=== PATIENT | male | born 1985 | race Caucasian/White ===

== ENCOUNTER 2017-02-19 00:43 | Emergency (ER) | payer OTHER ==
[~2017-02-19 00:43] MED LIST: ANTIVERT PO; BACTRIM DS TABL1 TA1 PO; CLEOCIN HCL300 M1 PO; DARVOCET-N 1001 TAB PO; NO MEDICATIONS; SUBOXONE 8 MG-1 EAC1 SL; VOLTAREN75 MG PO; WELLBUTRIN XL PO
== END 2017-02-19 00:45 | disposition home or self-care (01) ==
LOC: SED 00:43
DX: S63.501A Unspecified sprain of right wrist, initial encounter (principal); S80.01XA Contusion of right knee, initial encounter; F32.9 Major depressive disorder, single episode, unspecified; F17.200 Nicotine dependence, unspecified, uncomplicated; W01.0XXA Fall on same level from slipping, tripping and stumbling without subsequent striking against object, initial encounter; Y92.89 Other specified places as the place of occurrence of the external cause
CPT/HCPCS: 29125; 29530; 99284

== ENCOUNTER 2017-04-23 19:35 | Emergency (ER) | payer SELFPAY ==
--- NOTE | ~2017-04-23 | CT98 ---
[facility] A Service of [facility] & [facility] RADIOLOGY TEXT RESULTS PATIENT: EVELYN MONTGOMERY LOCATION: SED : 83 UNIT #: [id number] AGE: [address]: DARIEN CASTELLANOS PA-C SEX: M ORDER DR: [id number] [address] [address] [id number] E MR#: [id number] Acc #: [id number] NAME: EVELYN MONTGOMERY : 1985 SEX: M STUDY DATE/TIME: 04/23/2017 20:35 UNIT: SED ROOM: STUDY DESCRIPTION: CT Lumbar Spine Wo Cont Attending Physician: Darien Castellanos Pa-C Ordering Physician: Darien Castellanos Pa-C Primary Care Physician: Brain Yeung M.D. MEDICAL IMAGING REPORT This report is preliminary unless electronic signature is present. EXAM CT lumbar spine without contrast. HISTORY Fell at [facility], low back pain, right hip pain x2 weeks. COMPARISON CT lumbar spine, 11/09/08. TECHNIQUE Thin section axial images performed through the lumbar spine without contrast. Multiplanar reconstructed images reviewed at a workstation. This CT exam was performed with one or more of the following radiation dose reduction techniques: automatic exposure control, adjustment of mA and/or kV according to patient size, and iterative reconstruction. No fracture or malalignment. At L2-3, there is a circumferential disc bulge which in combination with facet hypertrophic changes contributes to moderate central canal stenosis and mild bilateral foraminal stenosis. At L3-4, there is a circumferential disc bulge with facet ligamentous hypertrophic changes contributing to bilateral foraminal stenosis. At L4-5, there is a circumferential disc bulge contributing to moderate central canal stenosis and moderate bilateral foraminal stenosis. At L5-S1, there is a moderate sized central disc protrusion which effaces the thecal sac and contributes to moderate central canal stenosis and bilateral foraminal stenosis. Posterior elements and paravertebral soft tissues unremarkable. IMPRESSION 1. No acute lumbar spine abnormality identified. 2. Multilevel degenerative disc disease with multilevel disc bulging L2-3, L3-4, L4-5, L5-S1 with multilevel spinal and foraminal stenosis as detailed above. These findings have all shown progression when STS. [facility] A Service of [facility] & [facility] RADIOLOGY TEXT RESULTS PATIENT: EVELYN MONTGOMERY [place] [facility] [birth year] UNIT #: [id number] AGE: [address]: DARIEN CASTELLANOS PA-C SEX: M ORDER DR: compared to the patient's study of 2008. Dictated by... Ramon Richey M.D. THIS IS AN ELECTRONICALLY VERIFIED REPORT Ramon Richey M.D. at 04/24/2017 2:47 PM OPHELIA/paola TD: 04/23/2017 21:38 JOB #: [id number] MEDICAL IMAGING REPORT Page 1 of 1
--- NOTE | ~2017-04-23 | CR150 ---
[facility] A Service of [facility] & [facility] RADIOLOGY TEXT RESULTS PATIENT: EVELYN MONTGOMERY LOCATION: SED : [birth year] UNIT #: [id number] AGE: [address]: DARIEN CASTELLANOS PA-C SEX: M ORDER DR: [id number] [place] [address] [id number] E MR#: [id number] Acc #: [id number] NAME: EVELYN MONTGOMERY : 1985 SEX: M STUDY DATE/TIME: 04/23/2017 20:41 UNIT: SED ROOM: STUDY DESCRIPTION: CR Hip Min 2 Views Lt Attending Physician: Darien Castellanos Pa-C Ordering Physician: Darien Castellanos Pa-C Primary Care Physician: Brain Yeung M.D. MEDICAL IMAGING REPORT This report is preliminary unless electronic signature is present. EXAM Left hip HISTORY Fell at [facility] 2 weeks ago. Complains of left hip pain, low back pain. FINDINGS AP pelvis and frog lateral view left hip demonstrates no fracture, dislocation, arthritic or inflammatory change. Soft tissues appear normal. IMPRESSION Negative left hip and pelvis. Dictated by... Ramon Richey M.D. THIS IS AN ELECTRONICALLY VERIFIED REPORT Ramon Richey M.D. at 04/24/2017 2:47 PM OPHELIA/rene TD: 04/23/2017 21:28 JOB #: [id number] MEDICAL IMAGING REPORT Page 1 of 1
--- NOTE | ~2017-04-23 | CR63 ---
[facility]. [facility] A Service of [facility] RADIOLOGY TEXT RESULTS PATIENT: EVELYN MONTGOMERY LOCATION: SED : [birth year] UNIT #: [id number] AGE: [address]: DARIEN CASTELLANOS PA-C SEX: M ORDER DR: [id number] [place] [address] [id number] E MR#: [id number] Acc #: [id number] NAME: EVELYN MONTGOMERY : 1985 SEX: M STUDY DATE/TIME: 04/23/2017 20:38 UNIT: SED ROOM: STUDY DESCRIPTION: CR Chest 2 View Attending Physician: Darien Castellanos Pa-C Ordering Physician: Darien Castellanos Pa-C Primary Care Physician: Brain Yeung M.D. MEDICAL IMAGING REPORT This report is preliminary unless electronic signature is present. EXAM Two view chest. HISTORY Sharp shooting chest pain for a while. COMPARISON 11/23/16 FINDINGS PA and lateral examination of the chest upright shows a good expansion of the parenchyma with a normal distribution of the pulmonary vascularity. There is no indication of congestion, effusion, infiltrate, tumor, or nodular density. The pleural reflections and diaphragmatic contours are normal. The cardiac silhouette and mediastinal anatomy is within normal limits. IMPRESSION Normal PA and lateral chest. Dictated by... Ramon Richey M.D. THIS IS AN ELECTRONICALLY VERIFIED REPORT Ramon Richey M.D. at 04/24/2017 2:47 PM [place] TD: 04/23/2017 21:41 JOB #: [id number] MEDICAL IMAGING REPORT [facility]. [facility] A Service [facility] RADIOLOGY TEXT RESULTS PATIENT: EVELYN MONTGOMERY LOCATION: SED : [birth year] UNIT #: [id number] AGE: [address]: DARIEN CASTELLANOS PA-C SEX: M ORDER DR: Page 1 of 1
== END 2017-04-23 21:42 | disposition home or self-care (01) ==
LOC: SED 19:35
DX: M48.06 Spinal stenosis, lumbar region (principal); M51.36 Other intervertebral disc degeneration, lumbar region; F32.9 Major depressive disorder, single episode, unspecified; Z88.0 Allergy status to penicillin; Z88.5 Allergy status to narcotic agent; Z91.040 Latex allergy status; F17.210 Nicotine dependence, cigarettes, uncomplicated
CPT/HCPCS: 71020; 72131; 73502; 96372; 99284; J1100; J1885

== ENCOUNTER 2017-05-04 21:18 | Emergency (ER) | payer SELFPAY | END 2017-05-04 22:56 | disposition home or self-care (01) | LOC: SED 21:18 | DX: M54.42 Lumbago with sciatica, left side (principal); F17.200 Nicotine dependence, unspecified, uncomplicated; F32.9 Major depressive disorder, single episode, unspecified | CPT/HCPCS: 96372; 99283; J1885 ==